=== PATIENT | female | born 2000 | race Caucasian/White ===

== ENCOUNTER 2025-01-03 09:43 | Emergency (ER) | payer OTHER, SELFPAY ==
[~2025-01-03] VITALS: Ht 149.9 cm; Wt 56.3 kg
[2025-01-03] MEDS ORDERED: ASPI81CH33 PO (09:50)
[2025-01-03] MEDS: ONDANSETRON 4MG 2ML VIAL IV ONE ×2 (11:08→13:21)
[2025-01-03] MEDS: NS (Normal Saline) 0.9% 1,000 ML IV ONE (11:08)
[2025-01-03 11:27] LABS: BASO % 0.2 % (0.0-1.0); HEMATOCRIT 41.7 % (36.0-47.0); HEMOGLOBIN 14.3 g/dl (12.0-15.5); LYMPH # 0.6 10^3/uL (1.5-5.0); LYMPH % 5.2 % (24.0-44.0); MEAN CORPUSCULAR HEMOGLOBIN 28.9 pg (27.0-33.0); MEAN CORPUSCULAR HGB CONC 34.3 g/dl (32.0-36.5); MEAN CORPUSCULAR VOLUME 84.4 fl (80.0-96.0); MONO # 0.4 10^3/uL (0.0-0.8); NEUTROPHILS # 11.3 10^3/uL (1.5-8.5); NEUTROPHILS % 91.3 % (36.0-66.0); PLATELET COUNT, AUTOMATED 174 10^3/uL (150-450); RED BLOOD COUNT 4.94 10^6/uL (4.00-5.40); WHITE BLOOD COUNT 12.4 10^3/uL (4.0-10.0)
[2025-01-03 12:06] LABS: HCG, SERUM QUANTITATIVE 55240.2 MIU/ML (<4.2)
[2025-01-03 12:48] LABS: ALBUMIN 4.3 G/DL (3.2-5.2); ALKALINE PHOSPHATASE 40 U/L (35-104); ALT/SGPT 26 U/L (7.0-40); AST/SGOT 72 U/L (<34); BILIRUBIN,TOTAL 1.1 MG/DL (0.3-1.2); TOTAL PROTEIN 8.2 G/DL (5.7-8.2)
[2025-01-03 13:20] LABS: BLOOD UREA NITROGEN 5 MG/DL (9-23); CALCIUM LEVEL 8.8 MG/DL (8.5-10.1); CARBON DIOXIDE LEVEL 20 MMOL/L (20-31); CHLORIDE LEVEL 107 MMOL/L (98-107); CREATININE FOR GFR 0.53 MG/DL (0.55-1.30); GLOMERULAR FILTRATION RATE > 90.0 (>60); GLUCOSE, FASTING 100 MG/DL (60-100); SODIUM LEVEL 136 MMOL/L (136-145)
[2025-01-03 13:24] VITALS: BP 102/50; TEMP 98.7; O2SAT 100
[2025-01-03 13:26] LABS: KETONE, URINE AUTO RFX 2+ mg/dL (NEGATIVE); MUCUS, URINE RFX LARGE (NEGATIVE); NITRITE, URINE AUTO RFX NEGATIVE (NEGATIVE); RBC, URINE AUTO RFX 1 /HPF (0-3); SQUAM EPITHELIAL CELL UR AURFX 1 /HPF (0-6); WBC, URINE AUTO RFX 6 /HPF (0-3)
[2025-01-03] MEDS ORDERED: UNIS25TA3 PO (13:41)
[2025-01-03] MEDS ORDERED: PYRI25TA2 PO (13:41)
[2025-01-03 13:54] LABS: LEUKOCYTE ESTERASE UR AUTO RFX TRACE (NEGATIVE)
[2025-01-03] MEDS ORDERED: MACR100C43 PO (14:01)
[2025-01-03] MEDS: NITROFURANTOIN (MACROBID) 100 MG CAP PO ONE (14:12)
[2025-01-03] MEDS: METOCLOPRAMIDE INJ 10MG/2ML VIAL IV ONE (14:23)
== END 2025-01-03 15:07 | disposition home or self-care (01) ==
LOC: M ED 09:43
DX: O21.9 Vomiting of pregnancy, unspecified (principal); Z3A.01 Less than 8 weeks gestation of pregnancy; Z79.1 Long term (current) use of non-steroidal anti-inflammatories (NSAID); Z79.899 Other long term (current) drug therapy
CPT/HCPCS: 76801; 76817; 80053; 81001; 84702; 85025; 86850; 86900; 86901; 87086; 93976; 96361; 96374; 96375; 99284; J2405; J2765